=== PATIENT | female | born 1955 | race Caucasian/White ===

== ENCOUNTER 2022-08-27 11:57 | Outpatient (CLI) | payer OTHER | END 2022-08-27 11:58 | disposition home or self-care (01) | LOC: CSHRAD 11:57 | PROVIDERS: ATTEND Family Medicine | DX: T84.84XD Pain due to internal orthopedic prosthetic devices, implants and grafts, subsequent encounter (principal); S42.251D Displaced fracture of greater tuberosity of right humerus, subsequent encounter for fracture with routine healing | CPT/HCPCS: 71046 ==